=== PATIENT | female | born 1995 | race African-American/Black ===

== ENCOUNTER 2025-03-13 20:50 | Emergency (ER) | payer OTHER ==
[~2025-03-13] VITALS: Ht 180.3 cm; Wt 88.9 kg
[2025-03-13 20:58] VITALS: PULSE 90; RESP 18; TEMP 98
[2025-03-13] MEDS ORDERED: MACROBID 100 M100 MG PO (21:20)
[2025-03-13] MEDS ORDERED: PYRIDIUM200 MG PO (21:20)
[2025-03-13 21:27] VITALS: BP 129/91; PULSE 70; RESP 18; TEMP 98; O2SAT 98
== END 2025-03-13 21:27 | disposition home or self-care (01) ==
LOC: FSED 21:02
DX: R30.0 Dysuria (principal); N39.0 Urinary tract infection, site not specified; R10.32 Left lower quadrant pain; F17.210 Nicotine dependence, cigarettes, uncomplicated
CPT/HCPCS: 81003; 81025; 99282